=== PATIENT | female | born 1975 | race Caucasian/White ===

== ENCOUNTER 2016-07-09 15:16 | Emergency (ER) | payer OTHER ==
[2016-07-09 16:37] LABS: HEMOGLOBIN 14.1 gm/dl (12.3-15.3); RED BLOOD COUNT 4.88 M/UL (4.00-5.10); WHITE BLOOD COUNT 11.4 K/UL (4.5-11.0)
[2016-07-09 16:54] LABS: BUN/CREATININE RATIO 16 (0-10)
== END 2016-07-09 20:16 | disposition home or self-care (01) ==
LOC: ER1 15:16
PROVIDERS: Emergency Medicine
DX: R10.9 Unspecified abdominal pain (principal); E11.9 Type 2 diabetes mellitus without complications; Z79.84 Long term (current) use of oral hypoglycemic drugs; Z79.899 Other long term (current) drug therapy
CPT/HCPCS: 71010; 80053; 81001; 82803; 83690; 84703; 85025; 96374; 96375; 99284; J2270; J2405; J7050; Q9962